=== PATIENT | female | born 1985 | race Two or more races ===

== ENCOUNTER 2023-01-24 11:28 | Emergency (ER) | payer OTHER ==
[~2023-01-24] VITALS: Ht 160 cm; Wt 77.6 kg
== END 2023-01-24 15:04 | disposition home or self-care (01) ==
LOC: ER 11:28
DX: O26.891 Other specified pregnancy related conditions, first trimester (principal); Z3A.13 13 weeks gestation of pregnancy; J35.8 Other chronic diseases of tonsils and adenoids; Z20.822 Contact with and (suspected) exposure to COVID-19

== ENCOUNTER 2023-03-15 11:49 | Emergency (ER) | payer OTHER ==
[~2023-03-15] VITALS: Ht 160 cm; Wt 81.6 kg
== END 2023-03-15 14:49 | disposition home or self-care (01) ==
LOC: ER 11:49
DX: K52.89 Other specified noninfective gastroenteritis and colitis (principal); A08.8 Other specified intestinal infections; Z3A.20 20 weeks gestation of pregnancy; Z20.822 Contact with and (suspected) exposure to COVID-19

== ENCOUNTER 2023-03-18 12:17 | Outpatient (CLI) | payer OTHER | END 2023-03-18 16:36 | disposition home or self-care (01) | LOC: PRENATAL 12:17 | PROVIDERS: ATTEND Obstetrics & Gynecology Maternal & Fetal Medicine | DX: O35.3XX0 Maternal care for (suspected) damage to fetus from viral disease in mother, not applicable or unspecified (principal); O09.529 Supervision of elderly multigravida, unspecified trimester; O44.00 Complete placenta previa NOS or without hemorrhage, unspecified trimester; Z3A.20 20 weeks gestation of pregnancy ==

== ENCOUNTER 2023-05-05 21:08 | Emergency (ER) | payer OTHER ==
[~2023-05-05] VITALS: Ht 170.2 cm; Wt 107.0 kg
== END 2023-05-05 23:47 | disposition home or self-care (01) ==
LOC: ER 21:08
PROVIDERS: General Practice
DX: O99.512 Diseases of the respiratory system complicating pregnancy, second trimester (principal); J06.9 Acute upper respiratory infection, unspecified; Z3A.27 27 weeks gestation of pregnancy; Z20.822 Contact with and (suspected) exposure to COVID-19

== ENCOUNTER 2023-06-11 13:55 | Outpatient (CLI) | payer OTHER | END 2023-06-11 15:11 | disposition home or self-care (01) | LOC: PRENATAL 13:55 | PROVIDERS: ATTEND Obstetrics & Gynecology Maternal & Fetal Medicine | DX: O26.849 Uterine size-date discrepancy, unspecified trimester (principal); O36.8199 Decreased fetal movements, unspecified trimester, other fetus; O09.529 Supervision of elderly multigravida, unspecified trimester; Z3A.32 32 weeks gestation of pregnancy ==

== ENCOUNTER 2023-07-03 19:36 | Outpatient (CLI) | payer OTHER | END 2023-07-03 20:18 | disposition home or self-care (01) | LOC: NST 19:36 | PROVIDERS: ATTEND Obstetrics & Gynecology | DX: Z34.83 Encounter for supervision of other normal pregnancy, third trimester (principal) ==

== ENCOUNTER 2023-07-17 16:52 | Inpatient (IN) | payer OTHER ==
[~2023-07-17] VITALS: Ht 160 cm; Wt 88.9 kg
[2023-07-17 18:17] LABS: HEMATOCRIT 32.9 % (36.0-45.00); HEMOGLOBIN 11.2 g/dL (12.0-15.00); MEAN CELL VOLUME 89.5 fL (80.00-100.00); MEAN CORPUSCULAR HEMOGLOBIN 30.4 pg (27.00-32.0); PLATELET COUNT 264 K/uL (150-450); RED BLOOD COUNT 3.68 M/uL (4.00-6.00); RED CELL DISTRIBUTION WIDTH 12.8 % (11.5-14.5)
[2023-07-17 18:19] LABS: PH,URINE 7.5 (5.0-8.0); URINE APPEARANCE Cloudy; URINE BILIRRUBIN Negative (NEGATIVE); URINE BLOOD Large; URINE COLOR Yellow; URINE GLUCOSE Negative (NEGATIVE); URINE LEUKOCYTE Moderate; URINE NITRATE Negative; URINE PROTEIN 30 (NEGATIVE)
[2023-07-17 18:20] LABS: URINE EPITHELIAL CELLS 21.4 uL (0.0-38.8); URINE RBC 11.2 uL (0.0-20.8); URINE WBC 120.7 uL (0.0-23.2)
[2023-07-17] MEDS ORDERED: PRENATAL + DHA1 EAC1 PO (18:32)
[2023-07-17] MEDS ORDERED: ECOTRIN81 MG PO (18:32)
[2023-07-17 18:34] LABS: INR 0.95; PARTIAL THROMBOPLASTIN TIME 25.3 SECONDS (22.0-34.0)
[2023-07-17 18:47] LABS: ALBUMIN 2.8 gm/dL (3.4-5.0); BILIRUBIN TOTAL 0.52 mg/dL (0.3-1.2); CALCIUM 9.5 mg/dL (8.5-10.1); CREATININE SERUM 0.71 mg/dL (0.55-1.02); GFR 92.13; GLOBULINA 3.6 G/DL (2.4-3.5); POTASSIUM 4.31 mEq/L (3.5-5.1); TOTAL PROTEIN 6.4 gm/dL (6.4-8.2)
[2023-07-18 17:54] LABS: ABG PH 7.354 (7.35-7.45); ABG PO2 25.2 mmHg (80-100); ABG pCO2 38.3 mmHg (35-45); BASE EXCESS -4.2 mmol/l; BICARBONATE 20.9 mmol/l (23-25)
[2023-07-18 17:55] LABS: o2 21 %
[2023-07-20] MEDS ORDERED: NAPR500T14 PO (07:52)
== END 2023-07-20 14:05 | disposition home or self-care (01) | DRG 807 ==
LOC: LDR 16:52 → OB/GYN 07-18 15:53
PROVIDERS: Obstetrics & Gynecology; ADMIT Obstetrics & Gynecology; ATTEND Obstetrics & Gynecology
PROC: 4A1HXCZ Monitoring of Products of Conception, Cardiac Rate, External Approach (ICD-10-PCS; 2023-07-17)
PROC: 10E0XZZ Delivery of Products of Conception, External Approach (ICD-10-PCS; principal; 2023-07-18)
DX: O75.89 Other specified complications of labor and delivery (principal); Z37.0 Single live birth; J11.1 Influenza due to unidentified influenza virus with other respiratory manifestations; Z3A.38 38 weeks gestation of pregnancy; Z20.822 Contact with and (suspected) exposure to COVID-19